=== PATIENT | male | born 1990 | race Caucasian/White ===

== ENCOUNTER 2017-11-24 21:57 | Emergency (ER) | payer OTHER, BC ==
[~2017-11-24] VITALS: Ht 180.3 cm; Wt 138.6 kg
[~2017-11-24 21:57] MED LIST: AMLODIPINE BESYL5 MG PO; DOXYCYCLINE HY100 MG PO; FLUOXETINE HCL20 MG PO; FLUOXETINE HCL40 MG PO; PREDNISONE20 MG PO; PRILOSEC20 MG PO; PROAIR HFA8.5 GM IH; PROZAC10 MG PO; VALSARTAN-HCTZ1 EAC2 PO; VALSARTAN-HCTZ1 EAC3 PO; ZYRTEC-D1 TABLE1 PO
[2017-11-25] MEDS ORDERED: KEFLEX500 MG PO (00:30)
[2017-11-25] MEDS ORDERED: ULTRACET1 TABLET PO (00:30)
[2017-11-25] MEDS ORDERED: NAPROSYN500 MG PO (00:30)
[2017-11-25 00:50] VITALS: BP 155/85
== END 2017-11-25 00:51 | disposition home or self-care (01) ==
LOC: EME 21:57
PROC: 3E0234Z Introduction of Serum, Toxoid and Vaccine into Muscle, Percutaneous Approach (ICD-10-PCS; principal; 2017-11-24)
DX: S62.525A Nondisplaced fracture of distal phalanx of left thumb, initial encounter for closed fracture (principal); W23.0XXA Caught, crushed, jammed, or pinched between moving objects, initial encounter; I10 Essential (primary) hypertension; Z23 Encounter for immunization; Z79.51 Long term (current) use of inhaled steroids; Z88.2 Allergy status to sulfonamides
CPT/HCPCS: 73140; 99281; 99284; S0020